=== PATIENT | male | born 1975 | race Caucasian/White ===

== ENCOUNTER 2019-10-19 05:16 | Emergency (ER) | payer OTHER ==
[~2019-10-19] VITALS: Ht 185.4 cm; Wt 122.5 kg
[~2019-10-19 05:16] MED LIST: BENADRYL25 MG; GLYBURIDE 5 MG T5 MG PO
[2019-10-19] MEDS ORDERED: NORVASC 2.5 MG2.5 M1 PO (05:30)
[2019-10-19 05:53] LABS: ABSOLUTE EOSINOPHILS 0.1 thou/uL (0.0-0.7); ABSOLUTE LYMPHOCYTES 1.4 thou/uL (0.8-5.3); ABSOLUTE MONOCYTES 0.4 thou/uL (0.0-1.2); ABSOLUTE NEUTROPHILS 3.1 thou/uL (1.6-8.1); BASOPHILS 0.5 %; EOSINOPHILS 2.8 %; HEMOGLOBIN 15.1 gm/dL (14.0-18.0); MCH 29.6 pg (26.0-34.0); MCV 84.4 fL (80.0-100.0); MONOCYTES 7.7 %; MPV 6.7 fl. (7.2-11.1); NUCLEATED RBCS 0 /100WBC; PLATELET COUNT* 270 thou/uL (150-400); RBC 5.09 mil/uL (4.50-6.00); WBC 5.1 thou/uL (4.0-11.0)
[2019-10-19 06:06] LABS: CALCIUM 9.3 mg/dL (8.5-10.1)
[2019-10-19 06:10] LABS: ALBUMIN 3.5 g/dL (3.4-5.0); TOTAL BILIRUBIN 0.6 mg/dL (<0.1-1.0); TOTAL PROTEIN 7.3 g/dL (6.4-8.2)
[2019-10-19] MEDS ORDERED: BACTRIM DS TAB1 EAC1 PO (06:52)
[2019-10-19] MEDS ORDERED: KEFLEX500 M1 PO (06:52)
[2019-10-19 07:51] VITALS: BP 145/85
[2019-10-20 02:06] LABS: GLYCOHEMOGLOBIN (HGB A1C) 10.8 % (4.8-5.6)
== END 2019-10-19 07:51 | disposition home or self-care (01) ==
LOC: M.ERS 05:16
PROVIDERS: Personal Emergency Response Attendant
DX: L03.032 Cellulitis of left toe (principal); E11.65 Type 2 diabetes mellitus with hyperglycemia; I10 Essential (primary) hypertension; R20.2 Paresthesia of skin; Z88.5 Allergy status to narcotic agent

== ENCOUNTER 2021-04-09 21:54 | Inpatient (IN) | payer OTHER ==
[~2021-04-09] VITALS: Ht 185.4 cm; Wt 119.7 kg
--- NOTE | ~2021-04-09 | OP ---
[address] [address] OPERATIVE REPORT Name: RUBEN ORTIZ Room: [address] IN M.R.#: [id number] Admission: 04/10/21 Attend Phys: Talya España Discharge: 04/16/21 Date of : 71 Report #: [id number] THIS REPORT FOR: cc: FAM - No family physician/PCP FAM - No family physician/PCP Chris Azevedo II, DO ~ DATE OF SURGERY: 04/15/2021 PREOPERATIVE DIAGNOSIS: Right hand abscess down to bone. POSTOPERATIVE DIAGNOSIS: Right hand abscess down to bone. PROCEDURE: Irrigation and debridement of right hand abscess. SURGEON: Chris Azevedo II, DO. YOUTH WORKER: None. ANESTHESIA: Per operative record. ESTIMATED BLOOD LOSS: Minimal. ANTIBIOTICS: Per operative record. DRAINS: None. COMPLICATIONS: None. CONDITION: The patient stable to recovery room. OPERATIVE PROCEDURE: The patient was taken to operative suite, placed supine on the table, given appropriate anesthesia. The patient had a well-padded tourniquet applied to affected upper extremity, which was inflated to 200 mmHg after Esmarch exsanguination for duration of procedure. The arm was sterilely prepped and draped. Surgery began by midline incision over the first dorsal interosseous muscle down to the second metacarpal. This was carried down approximately 2 cm. Blunt dissection was then performed down to the abscess, which was relieved of pressure and cultures were obtained. A small curette was then utilized to curette out the rodríguez of the abscess. Irrigation was performed with 1 liter of saline to irrigate out the wound. Necrotic tissue was debrided; however, there was minimal amount of this. A small piece of iodoform gauze was then placed in the incision and the remainder of [place] [address] OPERATIVE REPORT Name: RUBEN ORTIZ Room: [address] IN [facility]#: [id number] Admission: 04/10/21 Attend Phys: Talya España Discharge: 04/16/21 Date of : 71 Report #: [id number] nylon stitch. Dermabond dressing applied. The patient transported to recovery in stable condition. Counts were correct throughout the procedure. By: [id number] Azevedo II, DO /nt
[~2021-04-09 21:54] MED LIST changes: +BACTRIM DS TAB1 EAC1 PO; +KEFLEX500 M1 PO; +NORVASC 2.5 MG2.5 M1 PO
[2021-04-09 22:11] VITALS: BP 143/79
[2021-04-09 22:31] LABS: URINE BLOOD 2+ (Negative); URINE COLOR YELLOW; URINE GLUCOSE-RANDOM 3+ (Negative); URINE KETONES 2+ (Negative); URINE NITRITE-REFLEX NEGATIVE (Negative); URINE PROTEIN 1+ (Negative)
[2021-04-09 22:32] LABS: URINE BILIRUBIN 1+ (Negative); URINE CLARITY CLOUDY; URINE LEUKOCYTES-REFLEX 2+ (Negative)
[2021-04-09 22:33] LABS: ICTOTEST (BILI CONFIRMATORY) Negative (Negative)
[2021-04-09 22:34] LABS: BACTERIA-REFLEX >30 Many /HPF (None Seen); CASTS None Seen /LPF (None Seen); MUCUS 0-3 Light strn/LPF (None Seen); SQUAMOUS 0-3 Few /LPF (0-3); URINE RBC >20 Many /HPF (0-2); URINE WBC-REFLEX >25 Many /HPF (0-5); WBC CLUMPS Moderate (None Seen)
[2021-04-09 22:35] LABS: CRYSTALS None Seen /LPF (None Seen)
[2021-04-09 22:45] LABS: ABSOLUTE LYMPHOCYTES 1.5 thou/uL (0.8-5.3); ABSOLUTE MONOCYTES 1.1 thou/uL (0.0-1.2); ABSOLUTE NEUTROPHILS 10.6 thou/uL (1.6-8.1); BASOPHILS 0.4 %; EOSINOPHILS 0.2 %; HEMATOCRIT 37.6 % (42.0-52.0); HEMOGLOBIN 12.6 gm/dL (14.0-18.0); LYMPHOCYTES 11.3 %; MCH 27.1 pg (26.0-34.0); MCHC 33.5 g/dL (28.0-37.0); MCV 80.8 fL (80.0-100.0); MPV 6.5 fl. (7.2-11.1); NUCLEATED RBCS 0 /100WBC; PLATELET COUNT* 431 thou/uL (150-400); POLYS 80.1 %; RBC 4.65 mil/uL (4.50-6.00); WBC 13.2 thou/uL (4.0-11.0)
[2021-04-09 22:50] LABS: CALCIUM 9.1 mg/dL (8.5-10.1); CREATININE 1.1 mg/dL (0.6-1.3); POTASSIUM 4.2 mmol/L (3.5-5.1)
[2021-04-09 22:54] LABS: ALBUMIN 2.5 g/dL (3.4-5.0); MAGNESIUM 1.9 mg/dL (1.8-2.4); TOTAL BILIRUBIN 0.9 mg/dL (<0.1-1.0); TOTAL PROTEIN 7.6 g/dL (6.4-8.2)
[2021-04-09 22:57] LABS: INFLUENZA A ANTIGEN Negative (Negative); INFLUENZA B ANTIGEN Negative (Negative)
[2021-04-09 23:09] LABS: BE 2.2 mmol/L (-2 to +3); PCO2 21.7 mmHg (35.0-45.0); PO2 106.9 mmHg (75.0-100.0)
[2021-04-09] MEDS ORDERED: HUMULINR100 (23:28)
[2021-04-09] MEDS ORDERED: HUMULIN N100 UNIT/1 (23:29)
[2021-04-10 04:41] VITALS: BP 137/70
[2021-04-10 08:41] VITALS: BP 147/84
--- NOTE | 2021-04-10 10:46 | EKG ---
[place] [address] ELECTROCARDIOGRAM REPORT Name: RUBEN ORTIZ Room: [address] [place] [address] ADM IN [facility]#: [id number] Admission: 04/10/21 Attend Phys: Leonel Ennis Discharge: Date of : 71 Date of Service: 04/09/212207 Report #: [id number] THIS REPORT FOR: //name// [facility] ED Test Date: 2021-04-09 Test Time: 22:08:30 Pat Name: RUBEN ORTIZ Department: Room: [facility] Gender: M Residential Concierge: [place] : 1975 Requested By: Noemi Eaton Order Number: [id number] MD: Jagdish Slade Measurements Intervals [place] Rate: 100 P: 29 WI: 182 QRS: 58 QRSD: 96 T: 55 QT: 353 QTc: 456 Interpretive Statements Sinus tachycardia nonspecific st segment changes Baseline wander in lead(s) V1,V2 No previous ECG available for comparison Electronically Signed On 04-10-2021 10:46:36 AIR TRAFFIC CONTROL OPERATOR by Jagdish Slade [email or web address] <ELECTRONICALLY SIGNED> By: Jagdish Slade MD, FACC 04/10/21 1046 07 07 Jagdish Slade MD, [facility] /EPI
[2021-04-10 12:41] VITALS: BP 142/77
[2021-04-10 12:52] LABS: ABSOLUTE LYMPHOCYTES 1.2 thou/uL (0.8-5.3); EOSINOPHILS 0.4 %; HEMATOCRIT 34.2 % (42.0-52.0); RBC 4.15 mil/uL (4.50-6.00)
[2021-04-10 12:54] LABS: ABSOLUTE BASOPHILS 0.1 thou/uL (0.0-0.2); ABSOLUTE NEUTROPHILS 9.1 thou/uL (1.6-8.1); BASOPHILS 0.8 %; HEMOGLOBIN 11.5 gm/dL (14.0-18.0); LYMPHOCYTES 10.8 %; MCH 27.6 pg (26.0-34.0); MCHC 33.6 g/dL (28.0-37.0); MCV 82.4 fL (80.0-100.0); MONOCYTES 8.6 %; MPV 6.7 fl. (7.2-11.1); NUCLEATED RBCS 0 /100WBC; POLYS 79.4 %; RDW-CV 13.1 % (10.5-14.5); WBC 11.5 thou/uL (4.0-11.0)
[2021-04-10 12:55] LABS: PLATELET COUNT* 354 thou/uL (150-400)
[2021-04-10 13:01] LABS: ALBUMIN 2.1 g/dL (3.4-5.0); CALCIUM 8.5 mg/dL (8.5-10.1); CREATININE 0.9 mg/dL (0.6-1.3); TOTAL BILIRUBIN 0.5 mg/dL (<0.1-1.0); TOTAL PROTEIN 6.4 g/dL (6.4-8.2); URIC ACID* 5.2 mg/dL (2.6-7.2)
[2021-04-10 14:32] VITALS: BP 142/77
[2021-04-10 16:00] VITALS: BP 141/79
--- NOTE | 2021-04-10 19:59 | NUR ---
pt. admitted around 1500 from er, rem=port received from elsa turk. L 4th toe appears inflamed, no edema or drainage. clean and dry to touch, zeke. call light and personal belongings placed within reach. pt. in bed, resting with eyes closed, at shift change.
[2021-04-10 21:00] VITALS: BP 145/73
[2021-04-11 04:05] LABS: GLYCOHEMOGLOBIN (HGB A1C) 11.7 % (4.8-5.6)
[2021-04-11 04:28] LABS: ABSOLUTE EOSINOPHILS 0.1 thou/uL (0.0-0.7); ABSOLUTE LYMPHOCYTES 1.4 thou/uL (0.8-5.3); ABSOLUTE MONOCYTES 0.8 thou/uL (0.0-1.2); ABSOLUTE NEUTROPHILS 7.7 thou/uL (1.6-8.1); BASOPHILS 0.3 %; HEMATOCRIT 31.9 % (42.0-52.0); HEMOGLOBIN 10.7 gm/dL (14.0-18.0); LYMPHOCYTES 14.2 %; MCH 27.9 pg (26.0-34.0); MCHC 33.6 g/dL (28.0-37.0); MCV 83.1 fL (80.0-100.0); MONOCYTES 8.2 %; MPV 6.4 fl. (7.2-11.1); NUCLEATED RBCS 0 /100WBC; PLATELET COUNT* 338 thou/uL (150-400); POLYS 76.3 %; RBC 3.84 mil/uL (4.50-6.00); RDW-CV 13.1 % (10.5-14.5); WBC 10.1 thou/uL (4.0-11.0)
[2021-04-11 04:48] LABS: CALCIUM 8.2 mg/dL (8.5-10.1); CREATININE 0.8 mg/dL (0.6-1.3); POTASSIUM 3.4 mmol/L (3.5-5.1)
[2021-04-11 05:46] VITALS: BP 138/80
--- NOTE | 2021-04-11 08:14 | NUR ---
PATIENT HAS SLEPT WELL THROUGHOUT MOST OF THE NIGHT. VSS ON RA. MEDICATIONS GIVEN ORDERED AND CHARTED. IV IN RIGHT AC-NS @ 100ML/HR. IV ABT GIVEN WITHOUT ANY ADVERSE SIDE EFFECTS NOTED. PATIENT HAS BEEN UP AD-GAVI AND STEADY. ASSESSMENT CHARTED. PATIENT INSTRUCTED TO USE CALL LIGHT WHEN NEEDING ASSISTANCE. HOURLY ROUNDS MADE. WILL CONTINUE WITH PLAN OF CARE AND NURSING TO MONITOR.
[2021-04-11 08:43] VITALS: BP 134/82
--- NOTE | 2021-04-11 10:22 | NUR ---
CM ASSESSMENT: PT IS A&O. PT IS A CURRENT EMPLOYEE, AND HAS BEEN INFORMED THAT SHOULD ANY CM D/C PLANNING NEEDS ARISE CM WILL F/U. PT IN AGREEMENT. CM WILL REMAIN AVAILABLE TO ASSIST AND FOLLOW NEEDED.
[2021-04-11 12:00] VITALS: BP 155/89
[2021-04-11 16:00] VITALS: BP 153/82
--- NOTE | 2021-04-11 18:42 | NUR ---
NO ACUTE EVENTS THIS SHIFT. PT RECEIVED IMAGING - SEE CHART. SECOND MRI TO BE DONE TOMORROW R/T DYE. ROOM AIR. UP AD GAVI.
[2021-04-11 20:23] VITALS: BP 148/77
[2021-04-12] VITALS (17 sets, daily range): BP systolic 122–151; BP diastolic 68–84
[2021-04-12 04:21] LABS: ABSOLUTE EOSINOPHILS 0.1 thou/uL (0.0-0.7); ABSOLUTE LYMPHOCYTES 1.4 thou/uL (0.8-5.3); ABSOLUTE MONOCYTES 0.7 thou/uL (0.0-1.2); ABSOLUTE NEUTROPHILS 7.3 thou/uL (1.6-8.1); BASOPHILS 0.3 %; EOSINOPHILS 0.7 %; HEMATOCRIT 30.1 % (42.0-52.0); HEMOGLOBIN 10.2 gm/dL (14.0-18.0); LYMPHOCYTES 14.8 %; MCH 27.9 pg (26.0-34.0); MCHC 33.8 g/dL (28.0-37.0); MCV 82.6 fL (80.0-100.0); MONOCYTES 7.2 %; MPV 6.4 fl. (7.2-11.1); NUCLEATED RBCS 0 /100WBC; PLATELET COUNT* 408 thou/uL (150-400); RBC 3.65 mil/uL (4.50-6.00); RDW-CV 13.1 % (10.5-14.5); WBC 9.5 thou/uL (4.0-11.0)
[2021-04-12 04:34] LABS: ALBUMIN 1.7 g/dL (3.4-5.0); CALCIUM 8.3 mg/dL (8.5-10.1); CREATININE 0.9 mg/dL (0.6-1.3); POTASSIUM 3.2 mmol/L (3.5-5.1); TOTAL BILIRUBIN 0.3 mg/dL (<0.1-1.0); TOTAL PROTEIN 5.9 g/dL (6.4-8.2)
--- NOTE | 2021-04-12 07:10 | NUR ---
CHANGE OF SHIFT REPORT GIVEN PATIENT SEEN IN BED ASLEEP ASSUMED CARE
[2021-04-12 14:10] LABS: CALCIUM 8.5 mg/dL (8.5-10.1); CREATININE 0.8 mg/dL (0.6-1.3); POTASSIUM 3.4 mmol/L (3.5-5.1)
[2021-04-12 14:13] LABS: MAGNESIUM 2.2 mg/dL (1.8-2.4); PHOSPHORUS* 4.3 mg/dL (2.5-4.9)
--- NOTE | 2021-04-12 15:33 | NUR ---
PLAN OF CARE: PHYSICIAN INFORMS OF PLAN TO FOR PT TO HAVE LINDA. PT MAY NEED TO TRANSFER TO A HIGHER LEVEL OF CARE PENDING THESE RESULTS. IF PT DOES NOT NEED TO TRANSFER CM WILL CONTINUE TO ASSIST WITH HOME IV ABT INFUSION ARRANGEMENTS WITH [facility]. [facility] RETURNS CALL TO INFORM OF PT'S CO-PAY INFO 'PATIENT HAD DEDUCTIBLE OF $1000 TO MEET ($0 CURRENTLY MET). ONCE DEDUCTIBLE IS MET PATIENT WILL BE RESPONSIBLE FOR $24.34/DAY UNTIL OOP OF $6800 IS MET ($29 CURRENTLY MET). AFTER THIS PATIENT WILL BE COVERED AT 100%". CM TO DISCUSS THIS WITH THE PT PENDING CONFIRMATION OF POC WITH PHYSICIAN. CM WILL REMAIN AVAILABLE TO ASSIST AND FOLLOW NEEDED.
--- NOTE | 2021-04-12 18:18 | TEE ---
[place] [address] TRANSESOPHAGEAL ECHOCARDIOGRAM Name: ANGELRUBEN Nicolasa Room: [address] IN [facility]#: [id number] Admission: 04/10/21 Attend Phys: Leonel Ennis Discharge: Date of : 71 Date of Service: 04/12/21 1818 Report #: [id number] THIS REPORT FOR: cc: FAM - No family physician/PCP FAM - No family physician/PCP Eddie Felder MD [facility] ~ APPROVED REPORT Study performed: 04/12/2021 14:12:41 EXAM: Transesophageal Echocardiogram Patient Location: In-Patient Room #: [facility] Status: routine BSA: 2.42 HR: 741 bpm BP: 143/80 mmHg Rhythm: NSR Other Information Study Quality: Good Indications STAPH BACTEREMIA Echo Enhancing Agent Indication: Rule out Shunt Agent(s) / Amount(s) Used: Agitated Saline 10 cc Procedure After obtaining informed consent, patient underwent transesophageal echo in the [employer]. Type of Sedation : Conscious Sedation Sedation was administered by Eli Mora RN. Sedation start time: 1429 Case end Time: 1440 Sedation was achieved intravenously with: Versed (5) Fentanyl (125) Transesophageal probe was inserted and advanced into esophagus without difficulty by Eddie Felder MD, FACC. Echo enhancement indication: R/O Septal defect. Echo enhancement agent administered: Agitated Saline The LINDA was performed without complications. Throughout the procedure, the blood pressure, pulse oximetry, cardiac rhythm, [place] [address] TRANSESOPHAGEAL ECHOCARDIOGRAM Name: RUBEN ORTIZ Room: [address] IN [facility]#: [id number] Admission: 04/10/21 Attend Phys: Leonel Ennis Discharge: Date of : 71 Date of Service: 04/12/21 1818 Report #: [id number] The patient tolerated the procedure without adverse effects. Recovery from conscious sedation was uneventful and vital signs were stable. Left Ventricle The left ventricle is normal size. There is normal LV segmental wall motion. There is normal left ventricular wall thickness. Left ventricular systolic function is normal. LVEF is 60-65%. Right Ventricle The right ventricle is normal size. The right ventricular systolic function is normal. Atria No thrombus is visualized in the left atrium or appendage. The interatrial septum is intact with no evidence for an atrial septal defect. The right atrium size is normal. Aortic Valve The aortic valve is normal in structure. No aortic regurgitation is present. There is no aortic valvular stenosis. Mitral Valve The mitral valve is normal in structure. Mild mitral regurgitation. No evidence of mitral valve stenosis. Tricuspid Valve The tricuspid valve is normal in structure. There is no tricuspid valve regurgitation noted. Pulmonic Valve The pulmonary valve is normal in structure. There is no pulmonic valvular regurgitation. Great Vessels The aortic root is normal in size. Pericardium There is no pericardial effusion. <Conclusion> The left ventricle is normal size. There is normal left ventricular wall thickness. Left ventricular systolic function is normal. LVEF is 60-65%. There is normal LV [place] [address] TRANSESOPHAGEAL ECHOCARDIOGRAM Name: ORTIZRUBEN Room: [address] IN ..#: [id number] Admission: 04/10/21 Attend Phys: Leonel Ennis Discharge: Date of : 71 Date of Service: 04/12/211817 Report #: [id number] No thrombus is visualized in the left atrium or appendage. The interatrial septum is intact with no evidence for an atrial septal defect. Mild mitral regurgitation. There was no evidence of valvular vegetation. <ELECTRONICALLY SIGNED> By: Eddie Felder MD, FACC 04/12/211817 17 17 Eddie Felder MD, FACC /INF
[2021-04-13] VITALS: BP 150/74
[2021-04-13 04:00] VITALS: BP 144/78
[2021-04-13 04:47] LABS: ABSOLUTE LYMPHOCYTES 1.3 thou/uL (0.8-5.3); ABSOLUTE NEUTROPHILS 6.8 thou/uL (1.6-8.1); BASOPHILS 0.2 %; EOSINOPHILS 0.8 %; HEMATOCRIT 29.6 % (42.0-52.0); HEMOGLOBIN 9.8 gm/dL (14.0-18.0); LYMPHOCYTES 15.1 %; MCH 27.3 pg (26.0-34.0); MCHC 33.1 g/dL (28.0-37.0); MCV 82.4 fL (80.0-100.0); MONOCYTES 6.8 %; MPV 6.3 fl. (7.2-11.1); PLATELET COUNT* 402 thou/uL (150-400); POLYS 77.1 %; RBC 3.59 mil/uL (4.50-6.00); RDW-CV 13.2 % (10.5-14.5); WBC 8.8 thou/uL (4.0-11.0)
[2021-04-13 04:48] LABS: ABSOLUTE EOSINOPHILS 0.1 thou/uL (0.0-0.7); ABSOLUTE MONOCYTES 0.6 thou/uL (0.0-1.2); NUCLEATED RBCS 0 /100WBC
[2021-04-13 05:14] LABS: ALBUMIN 1.7 g/dL (3.4-5.0); CALCIUM 8.1 mg/dL (8.5-10.1); CREATININE 0.9 mg/dL (0.6-1.3); POTASSIUM 3.4 mmol/L (3.5-5.1); PREALBUMIN 8.5 mg/dL (18.0-35.7); TOTAL BILIRUBIN 0.3 mg/dL (<0.1-1.0); TOTAL PROTEIN 5.9 g/dL (6.4-8.2)
[2021-04-13 08:00] VITALS: BP 150/80
--- NOTE | 2021-04-13 10:01 | NUR ---
PLAN OF CARE: PROGRESS NOTES INDICATE PLAN FOR PT TO HAVE SURGERY ON LEFT FOOT 4TH TOE TODAY. PT REMAINS ON IV ABT'S AND PLAN FOR PT TO NEED IV ABT'S AT D/C. [facility] FOLLOWING AND ABLE TO ASSIST WITH HOME IV ABT INFUSION AT D/C. CM WILL REMAIN AVAILABLE TO ASSIST AND FOLLOW NEEDED.
[2021-04-13 12:05] VITALS: BP 146/78
[2021-04-13 16:00] VITALS: BP 167/81
--- NOTE | 2021-04-13 18:34 | NUR ---
NO ACUTE CHANGES THROUGHOUT SHIFT. REFER TO CHARTING. PT ABLE TO COMPLETE MRI RIGHT HAND WITH IV ATIVAN. REFER TO EMAR. PT HAD I&D TO LEFT 4TH TOE TODAY-DRESSING IN PLACE. PT COMPLAINED OF PAIN TO RIGHT HAND-TREATED WITH PRN NORCO WITH PARTIAL RELIEF. PT NPO AFTER MIDNIGHT FOR TURP IN AM. AM ASSESSMENT CHARTED. MEDS PER JUN. CALL LIGHT WITHIN REACH. HOURLY ROUNDING OBSERVED. WILL CONTINUE PLAN OF CARE.
[2021-04-13 20:16] VITALS: BP 138/72
[2021-04-14] VITALS: BP 138/76
[2021-04-14 04:00] VITALS: BP 153/66
[2021-04-14 07:45] VITALS: BP 155/74
--- NOTE | 2021-04-14 09:56 | CON ---
[address] [address] CONSULTATION Name: RUBEN ORTIZ Room: [address] IN M.R.#: [id number] Admission: 04/10/21 Attend Phys: Talya España Discharge: Date of : 71 Report #: [id number] THIS REPORT FOR: cc: FAM - No family physician/PCP FAM - No family physician/PCP Chris Azevedo II DO ~ DATE OF CONSULTATION: 04/12/2021 ORTHOPEDIC CONSULTATION CHIEF COMPLAINT: Right wrist pain. HISTORY OF PRESENT ILLNESS: The patient admitted to the hospital with intractable body aches, muscle aches and not feeling well. The patient had Moderna vaccination. Since then, he has not felt well. He has history of diabetes, currently has not been taking the medications properly, off his insulin for at least a week, and was seen in the Emergency Department for significant redness on the third toe, left foot, has had diabetic ulcers previously. We are consulted for his right wrist pain. He states he has mild wrist pain. It lasts for several hours throughout the day. There is some mild swelling. Ice does seem to help. He has also been on antibiotics since his admission, which has also been helping decrease the amount of swelling and improving range of motion. Denies any chest discomfort, some nausea. ALLERGIES: LATEX AND OPIATES. 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 FAMILY HISTORY: Reviewed, but no pertinent family history. SOCIAL HISTORY: The patient denies any recreational drug use. Does not smoke tobacco. Occasionally uses alcohol. MEDICATIONS: Listed in chart. REVIEW OF SYSTEMS: A 12-system review of systems is negative except for pertinent positives in HPI. PHYSICAL EXAMINATION: GENERAL: The patient is a pleasant 46-year-old male. He is in mild distress. HEENT: Head normocephalic, atraumatic. Eyes: Pupils equal, round and reactive. Nose clear, without ulcerations. Moist mucous membrane. Mouth: Tongue midline. Throat midline. NECK: Supple, no JVD, [place] [address] CONSULTATION Name: RUBEN ORTIZ Room: [address] IN [facility]#: [id number] Admission: 04/10/21 Attend Phys: Talya España Discharge: Date of : 71 Report #: [id number] CARDIOVASCULAR: Regular rate and rhythm. Positive heart sounds, cap refill is normal. LUNGS: Clear to auscultation bilaterally. No wheezes or crackles. ABDOMEN: Soft, bowel sounds present, no masses. EXTREMITIES: The patient has no clubbing, cyanosis. Peripheral pulses normal. SKIN: Normal color. Does have swelling and induration of the right forearm. No evidence of erythema. The patient does not have any palpable abscesses or fluid collections. PSYCHIATRIC: The patient has appropriate mood and affect. NEUROLOGIC: The patient is alert and conversational. Cranial nerves are intact. MUSCULOSKELETAL: Exam of the right arm does show range of motion of the wrist near equal to the other side. There is swelling in the hand and arm. No significant erythema. The patient has full cell stripper strength. Cap refill brisk. Does have palpable swelling on the mid forearm on the dorsal aspect. No fluid collections, no lumps or masses noted. X-ray of the right forearm was evaluated shows no evidence of acute changes. LABORATORY STUDIES: White blood cell is trending downwards from 13.2 on admission to 9.5. CRP of 246 on admission. Urine culture was positive for ketones, blood, protein, bilirubin, white blood cells with clumps, bacteria. Blood culture from 04/09 showed gram-positive cocci identified testing positive for Staph aureus. Urine also shows MRSA. ASSESSMENT: Diabetes mellitus, uncontrolled, septicemia, hyponatremia, left third toe cellulitis and right wrist swelling and pain. PLAN: At this time, the patient was given IV fluids, IV antibiotics seem to be assisting with his wrist swelling. We will continue to follow. He is going to get a podiatry evaluation as well as Urology evaluation for the positive cultures in the urine and his toe cellulitis. Continue to monitor sugars and control those. Appears right wrist MRI is being obtained; however, this is not currently available. We will evaluate as results return. I appreciate the consultation. <ELECTRONICALLY SIGNED> By: Chris Azevedo II, DO 04/14/21 0956 [id number] Azevedo II, DO /nt
[2021-04-14 12:00] VITALS: BP 164/74
[2021-04-14 13:52] LABS: ABSOLUTE BASOPHILS 0.1 thou/uL (0.0-0.2); ABSOLUTE EOSINOPHILS 0.1 thou/uL (0.0-0.7); ABSOLUTE LYMPHOCYTES 1.1 thou/uL (0.8-5.3); ABSOLUTE MONOCYTES 0.4 thou/uL (0.0-1.2); ABSOLUTE NEUTROPHILS 5.5 thou/uL (1.6-8.1); BASOPHILS 0.7 %; EOSINOPHILS 0.9 %; HEMATOCRIT 30.2 % (42.0-52.0); HEMOGLOBIN 10.1 gm/dL (14.0-18.0); LYMPHOCYTES 14.9 %; MCH 27.6 pg (26.0-34.0); MCHC 33.4 g/dL (28.0-37.0); MCV 82.7 fL (80.0-100.0); MONOCYTES 6.1 %; NUCLEATED RBCS 0 /100WBC; PLATELET COUNT* 445 thou/uL (150-400); POLYS 77.4 %; RBC 3.65 mil/uL (4.50-6.00); RDW-CV 13.3 % (10.5-14.5); WBC 7.1 thou/uL (4.0-11.0)
[2021-04-14 15:43] VITALS: BP 144/76
--- NOTE | 2021-04-14 16:20 | NUR ---
PLAN OF CARE: PHYSICIAN INFORMS THAT PLAN REMAINS FOR PT TO D/C HOME WITH IV ABT'S WHEN MEDICALLY STABLE. [facility] CONTINUES TO FOLLOW AND AVAILABLE TO ASSIST WITH HOME IV ABT'S AT D/C. CM WILL REMAIN AVAILABLE TO ASSIST AND FOLLOW NEEDED.
--- NOTE | 2021-04-14 18:14 | NUR ---
NO ACUTE CHANGES THROUGHOUT SHIFT. REFER TO CHARTING. ORTHO SURG CONSULTED FOR ABSCESS TO 2ND METACARPAL- DR CANTU CALLED BACK AND ORDERS RECEIVED FOR NPO AFTER MIDNIGHT AND HOLD LOVENOX TONIGHT. PT SCHEDULED FOR TURP THIS AM AND CANCELED PER UROLOGY. REPEAT CT SCAN COMPLETED-REFER TO RESULTS. PT DENIES ANY PAIN OR SHORTNESS OF BREATH. ISOLATION MAINTAINED. AM ASSESSMENT CHARTED. MEDS PER JUN. CALL LIGHT WITHIN REACH. HOURLY ROUNDING OBSERVED. WILL CONTINUE PLAN OF CARE.
[2021-04-14 21:15] VITALS: BP 146/73
[2021-04-15] VITALS: BP 149/67
[2021-04-15 04:00] VITALS: BP 149/66
[2021-04-15 07:30] LABS: HEMATOCRIT 29.8 % (42.0-52.0); HEMOGLOBIN 9.9 gm/dL (14.0-18.0); MCHC 33.1 g/dL (28.0-37.0); MCV 81.5 fL (80.0-100.0); MPV 6.1 fl. (7.2-11.1); RBC 3.66 mil/uL (4.50-6.00); RDW-CV 13.2 % (10.5-14.5)
[2021-04-15 07:39] LABS: ALBUMIN 1.8 g/dL (3.4-5.0); CALCIUM 8.3 mg/dL (8.5-10.1); CREATININE 0.8 mg/dL (0.6-1.3); MAGNESIUM 1.9 mg/dL (1.8-2.4); POTASSIUM 3.4 mmol/L (3.5-5.1); TOTAL BILIRUBIN 0.4 mg/dL (<0.1-1.0); TOTAL PROTEIN 6.2 g/dL (6.4-8.2)
[2021-04-15 08:00] VITALS: BP 162/78
--- NOTE | 2021-04-15 14:07 | NUR ---
PLAN OF CARE: PHYSICIAN INFORMS OF PLAN TO POSSIBLY D/C PT HOME WITH HH AND IV ABT'S. [facility] CONFIRMS ABILTTY TO ASSIST WITH IV ABT'S AT D/C PENDING CONFIRMATION FROM ID OF CHOICE OF IV ABT AND ORDERS. CM TO DISCUSS HH CHOICE WITH PT. CM WILL REMAIN AVAILABLE TO ASSIST AND FOLLOW NEEDED. [facility] ([facility]) PHONE: [phone] FAX: [phone]
[2021-04-15 16:00] VITALS: BP 163/71
[2021-04-15 20:00] VITALS: BP 143/65
[2021-04-16] VITALS: BP 148/68
--- NOTE | 2021-04-16 04:19 | NUR ---
ASSUMED PT CARE AT APPROX 1930. PT IS AWAKE AND ORIENTED X4. PT IS NOT IN DISTRESS, NO DESATURATIONS NOTED ON ROOM AIR. S/p RIGHT HAND I&D/DEBRIDEMENT 04/05, WITH DRESSING CDI. LEFT FOOT DRESSING CDI. PT C/O RIGHT HAND PAIN PARTIALLY RELIEVED BY PAIN MEDS GIVEN PER JUN. NO ACUTE CHANGES THROUGHOUT THIS SHIFT. TM
[2021-04-16 08:00] VITALS: BP 174/88
[2021-04-16] MEDS ORDERED: VITAMIN D325 MC2 PO (10:27)
[2021-04-16] MEDS ORDERED: HUMULIN N100 UNIT/1 SUBQ (10:27)
[2021-04-16] MEDS ORDERED: HUMULINR100 SUBQ (10:27)
[2021-04-16] MEDS ORDERED: HYDROCODON-ACE1 EAC7 PO (10:27)
[2021-04-16 11:28] VITALS: BP 174/88
--- NOTE | 2021-04-16 12:09 | NUR ---
Went over paperwork with pt. pt verbalized understanding of all instruction. Per Dr Azevedo instructions, packing pulled from pts hand with attached stitch. Rewrapped. At this time, awaiting dr hu to fill out script for norco on prescription pad, as he signed paper with written script instructions instead of actual script on pad.
== END 2021-04-16 12:34 | disposition home health service (06) | DRG 854 ==
LOC: M.ERS 21:54 → M.TBA-ER 04-10 00:26 → M.2W 04-10 00:26
PROVIDERS: Internal Medicine; Nurse Practitioner Family; Personal Emergency Response Attendant; ADMIT Internal Medicine; ATTEND Internal Medicine
PROC: 0LBW0ZZ Excision of Left Foot Tendon, Open Approach (ICD-10-PCS; principal; 2021-04-13)
PROC: 05HC33Z Insertion of Infusion Device into Left Basilic Vein, Percutaneous Approach (ICD-10-PCS; 2021-04-15)
PROC: 0X9J0ZZ Drainage of Right Hand, Open Approach (ICD-10-PCS; 2021-04-15)
DX: A41.02 Sepsis due to Methicillin resistant Staphylococcus aureus (principal); L03.113 Cellulitis of right upper limb; N39.0 Urinary tract infection, site not specified; L02.612 Cutaneous abscess of left foot; E87.1 Hypo-osmolality and hyponatremia; Z20.822 Contact with and (suspected) exposure to COVID-19; Z88.8 Allergy status to other drugs, medicaments and biological substances; Z91.040 Latex allergy status; E11.42 Type 2 diabetes mellitus with diabetic polyneuropathy; Z79.4 Long term (current) use of insulin; E11.65 Type 2 diabetes mellitus with hyperglycemia; M65.9 Synovitis and tenosynovitis, unspecified